=== PATIENT | female | born 1960 | race African-American/Black ===

== ENCOUNTER 2022-06-19 13:00 | Emergency (ER) | payer MEDICAID ==
[~2022-06-19] VITALS: Ht 167.6 cm; Wt 100.0 kg
[2022-06-19] MEDS ORDERED: IPRATROPIUM/ALBUTEROL 0.5-3(2.5)MG/3ML NEB HHN ONE (13:45)
[2022-06-19] MEDS ORDERED: METHYLPREDNISOLONE SOD SUCC 125 MG/2 ML VIAL IV ONE (13:45)
[2022-06-19 14:38] LABS: BASOPHILS % 0.8 % (0.0-2.0); EOSINOPHILS % 6.8 % (0.0-5.0); HEMATOCRIT. 35.4 % (36.0-48.0); HEMOGLOBIN. 11.5 g/dL (12.0-16.0); LYMPHOCYTES % 15.1 % (20.0-50.0); MEAN CORPUSCULAR HEMOGLOBIN 27.1 pg (28.0-32.0); MEAN CORPUSCULAR VOLUME 83.1 fL (81.0-99.0); MEAN PLATELET VOLUME 7.6 fl (7.4-10.4); MONOCYTES % 8.9 % (2.0-8.0); NEUTROPHILS % 68.4 % (40.0-76.0); PLATELET 379 x1000/uL (130-400); RED BLOOD CELL COUNT 4.26 mill/uL (4.2-5.4); RED CELL DISTRIBUTION WIDTH 16.4 % (11.6-14.6)
[2022-06-19 14:47] LABS: CHLORIDE 108 mEq/L (98-107)
[2022-06-19] MEDS ORDERED: IPRATROPIUM/ALBUTEROL 0.5-3(2.5)MG/3ML NEB HHN NR (16:30)
[2022-06-19 16:38] VITALS: BP 149/95
[2022-06-19] MEDS ORDERED: P20 MT (17:36)
[2022-06-19 17:37] LABS: BG BASE EXCESS -0.9 mmol/L (-2.0-2.0); BG CARBOXYHEMOGLOBIN 0.1 % (0.5-1.5); BG DEOXYHEMOGLOBIN 0.9 % (0.0-5.0); BG FRACTION INSPIRED OXYGEN 60; BG HCO3 ACT 23.8 mmol/L (22.0-26.0); BG METHEMOGLOBIN 0.2 % (0.0-1.5); BG OXYGEN SATURATION 99.1 % (92.0-98.5); BG OXYHEMOGLOBIN 98.8 % (94.0-97.0); BG PCO2 39.5 mmHg (35.0-45.0); BG PH 7.398 (7.350-7.450); BG PO2 189.8 mmHg (75.0-100.0); BG SAMPLE SITE RIGHT RADIAL; BG TOTAL HEMOGLOBIN 12.5 g/dL (12.0-18.0); BG VENT MODE HHN
[2022-06-19] MEDS ORDERED: ALBU18HF2 IH (17:37)
[2022-06-19] MEDS ORDERED: AZIT250T12 MT (17:38)
[2022-06-19] MEDS ORDERED: ATROV IH (17:38)
== END 2022-06-19 19:01 | disposition home or self-care (01) ==
LOC: ER 13:00
DX: R06.02 Shortness of breath (principal); J45.909 Unspecified asthma, uncomplicated; Z88.0 Allergy status to penicillin
CPT/HCPCS: 36415; 36600; 71045; 80053; 82375; 82805; 83880; 84484; 85025; 93005; 94640; 96374; 99285; J2930; Z7610

== ENCOUNTER 2022-09-30 08:05 | Emergency (ER) | payer MEDICAID ==
[~2022-09-30] VITALS: Ht 167.6 cm; Wt 113.0 kg
[~2022-09-30 08:05] MED LIST: ALBU18HF2 IH; ATROV IH; AZIT250T12 MT; P20 MT
[2022-09-30] MEDS ORDERED: ALBUTEROL (0.083%) 2.5MG/3ML NEB HHN STA (08:25)
[2022-09-30] MEDS ORDERED: METHYLPREDNISOLONE SOD SUCC 125 MG/2 ML VIAL IV STA (08:25)
[2022-09-30] MEDS ORDERED: IPRATROPIUM BROMIDE (0.02%) 0.5MG/2.5ML NEB HHN STA (08:25)
[2022-09-30] MEDS ORDERED: P50 PO (09:53)
[2022-09-30 10:00] VITALS: BP 128/82
== END 2022-09-30 10:22 | disposition home or self-care (01) ==
LOC: ER 08:05
DX: J45.901 Unspecified asthma with (acute) exacerbation (principal); Z98.890 Other specified postprocedural states; Z88.0 Allergy status to penicillin
CPT/HCPCS: 71045; 93005; 94644; 99285; J2930; Z7610; 99283

== ENCOUNTER 2022-10-28 09:31 | Emergency (ER) | payer MEDICAID ==
[~2022-10-28] VITALS: Ht 167.6 cm; Wt 113.0 kg
[~2022-10-28 09:31] MED LIST changes: +P50 PO
[2022-10-28 09:33] VITALS: O2SAT 97
[2022-10-28] MEDS ORDERED: PREDNISONE 20MG TABLET PO STA (09:43)
[2022-10-28] MEDS ORDERED: IPRATROPIUM BROMIDE (0.02%) 0.5MG/2.5ML NEB HHN STA (09:43)
[2022-10-28] MEDS ORDERED: ALBUTEROL (0.083%) 2.5MG/3ML NEB HHN STA (09:43)
[2022-10-28] MEDS ORDERED: IPRATROPIUM/ALBUTEROL 0.5-3(2.5)MG/3ML NEB HHN NR (10:30)
[2022-10-28] MEDS ORDERED: P20 MT (10:51)
[2022-10-28] MEDS ORDERED: ALBU6.7H3 INH (10:51)
[2022-10-28 11:15] VITALS: BP 124/87; PULSE 114; RESP 20; TEMP 98.1
== END 2022-10-28 11:17 | disposition home or self-care (01) ==
LOC: ER 09:31
DX: J45.901 Unspecified asthma with (acute) exacerbation (principal)
CPT/HCPCS: 71045; 93005; 99283; J7512; Z7610